=== PATIENT | female | born 1950 | race Caucasian/White ===

== ENCOUNTER 2021-05-12 05:21 | Observation (INO) | payer MEDICARE ==
[~2021-05-12] VITALS: Ht 165.1 cm; Wt 104.3 kg
[2021-05-12] MEDS ORDERED: DEXTROSE 50% SYRINGE 50 ML IV ONE (05:50)
[2021-05-12 05:59] LABS: BASOPHILS % 0.7 % (0.0-1.0); EOSINOPHILS # (AUTO) 0.3 (0.0-0.4); EOSINOPHILS % 5.1 % (0.0-6.0); HEMATOCRIT 38.5 % (34.2-44.1); HEMOGLOBIN 12.8 g/dL (12.0-16.0); LYMPHOCYTES # (AUTO) 1.9 (1.0-3.2); LYMPHOCYTES % 32.7 % (18.0-39.1); MEAN CORPUSCULAR HEMOGLOBIN 31.1 pg (28-32); MEAN CORPUSCULAR HGB CONC 33.2 g/dL (31-35); MEAN CORPUSCULAR VOLUME 93.4 fL (81-99); MONOCYTES # (AUTO) 0.8 (0.2-0.8); MONOCYTES % 13.3 % (4.4-11.3); NEUTROPHILS # (AUTO) 2.7 (2.1-6.9); NEUTROPHILS % 47.7 % (38.7-80.0); PLATELET COUNT 246 x10e3/uL (140-360); RED BLOOD COUNT 4.12 x10e6/uL (3.6-5.1); RED CELL DISTRIBUTION WIDTH 12.8 % (11.7-14.4)
[2021-05-12 06:18] LABS: ALBUMIN 3.5 g/dL (3.5-5.0); ALBUMIN/GLOBULIN RATIO 1.1 (0.8-2.0); ANION GAP 14.2 mmol/L (8-16); CALCIUM 8.5 mg/dL (8.4-10.2); CREATININE, SERUM 1.12 mg/dL (0.57-1.11); POTASSIUM 4.2 mmol/L (3.5-5.1)
[2021-05-12] MEDS ORDERED: ONDANSETRON HCL INJ 2MG/ML 2ML 2 MG/ML VIAL IV PRN (09:45)
[2021-05-12] MEDS ORDERED: ACETAMINOPHEN 325 MG TAB PO PRN (09:45)
[2021-05-12] MEDS ORDERED: DOCUSATE SODIUM 100 MG CAP PO PRN (09:45)
[2021-05-12] MEDS ORDERED: SODIUM CHLORIDE 0.45% 1,000 ML IV ONE (10:30)
[2021-05-12 10:35] LABS: CHOL/HDL RATIO 4.1 (3.0-3.6)
[2021-05-12 12:21] VITALS: BP 119/53
[2021-05-12] MEDS ORDERED: DEXTROSE 5%/0.45% SOD CHL 1,000 ML IV SCH (14:15)
[2021-05-12] MEDS ORDERED: OXYCODONE/ACETAMINOPHEN 5-325 1 EACH TABLET PO NR (14:30)
[2021-05-12 15:42] VITALS: BP 110/79
[2021-05-12 16:51] LABS: ANION GAP 12.9 mmol/L (8-16); CALCIUM 8.5 mg/dL (8.4-10.2); CREATININE, SERUM 0.97 mg/dL (0.57-1.11); POTASSIUM 4.9 mmol/L (3.5-5.1)
[2021-05-12 17:50] VITALS: BP 110/79
[2021-05-12 17:54] VITALS: BP 110/79
[2021-05-12 20:00] VITALS: BP 117/60
[2021-05-13] VITALS (7 sets, daily range): BP systolic 119–172; BP diastolic 49–84
[2021-05-13] MEDS: OXYCODONE/ACETAMINOPHEN 5-325 1 EACH TABLET PO PRN ×3 (01:50→16:00)
[2021-05-13 06:28] LABS: BASOPHILS % 1.1 % (0.0-1.0); EOSINOPHILS # (AUTO) 0.2 (0.0-0.4); EOSINOPHILS % 6.2 % (0.0-6.0); HEMATOCRIT 38.1 % (34.2-44.1); HEMOGLOBIN 12.6 g/dL (12.0-16.0); LYMPHOCYTES # (AUTO) 1.1 (1.0-3.2); LYMPHOCYTES % 32.3 % (18.0-39.1); MEAN CORPUSCULAR HGB CONC 33.1 g/dL (31-35); MEAN CORPUSCULAR VOLUME 93.6 fL (81-99); MONOCYTES # (AUTO) 0.5 (0.2-0.8); MONOCYTES % 14.7 % (4.4-11.3); NEUTROPHILS # (AUTO) 1.6 (2.1-6.9); NEUTROPHILS % 44.9 % (38.7-80.0); PLATELET COUNT 182 x10e3/uL (140-360); RED BLOOD COUNT 4.07 x10e6/uL (3.6-5.1); RED CELL DISTRIBUTION WIDTH 12.6 % (11.7-14.4)
[2021-05-13 07:01] LABS: ANION GAP 12.2 mmol/L (8-16); CALCIUM 8.7 mg/dL (8.4-10.2); CREATININE, SERUM 0.78 mg/dL (0.57-1.11); POTASSIUM 4.2 mmol/L (3.5-5.1)
[2021-05-13] MEDS ORDERED: DEXTROSE 5%/0.45% SOD CHL 1,000 ML IV ONE (07:45)
[2021-05-14] VITALS: BP 140/64
[2021-05-14] MEDS: OXYCODONE/ACETAMINOPHEN 5-325 1 EACH TABLET PO PRN ×2 (00:56→07:56)
[2021-05-14 04:00] VITALS: BP 140/66
[2021-05-14 07:55] VITALS: BP 165/80
[2021-05-14 08:00] VITALS: BP 165/80
[2021-05-14] MEDS ORDERED: METOPROLOL TART25 MG PO (09:48)
== END 2021-05-14 10:18 | disposition home or self-care (01) ==
LOC: ER 05:26 → ERHOLD 07:26 → MED/SURG2 08:27
PROVIDERS: ADMIT Internal Medicine; ATTEND Internal Medicine
DX: E11.649 Type 2 diabetes mellitus with hypoglycemia without coma (principal); Z88.6 Allergy status to analgesic agent; E66.9 Obesity, unspecified; Z68.38 Body mass index [BMI] 38.0-38.9, adult; M54.9 Dorsalgia, unspecified; Z82.49 Family history of ischemic heart disease and other diseases of the circulatory system; N17.9 Acute kidney failure, unspecified; Z20.822 Contact with and (suspected) exposure to COVID-19
CPT/HCPCS: 36415 ×3; 70450; 71045; 80048 ×2; 80053; 80061; 82948 ×3; 83036; 84484; 85025 ×2; 93005; 94799; 96360; 99284; G0378 ×3; J2405; J7799; U0002

== ENCOUNTER 2021-06-16 11:23 | Emergency (ER) | payer MEDICARE, OTHER ==
[~2021-06-16] VITALS: Ht 165.1 cm; Wt 102.1 kg
[~2021-06-16 11:23] MED LIST: METOPROLOL TART25 MG PO
[2021-06-16] MEDS ORDERED: TESSALON PERLE100 MG PO (12:41)
[2021-06-16] MEDS ORDERED: PROAIR HFA INH8.5 GM PEG (12:41)
== END 2021-06-16 12:50 | disposition home or self-care (01) ==
LOC: ER 12:40
DX: U07.1 COVID-19 (principal); I10 Essential (primary) hypertension; E11.9 Type 2 diabetes mellitus without complications; G89.29 Other chronic pain; Z88.6 Allergy status to analgesic agent; Z88.1 Allergy status to other antibiotic agents; Z88.8 Allergy status to other drugs, medicaments and biological substances
CPT/HCPCS: 99283; U0002

== ENCOUNTER 2021-08-20 05:38 | Emergency (ER) | payer MEDICARE, OTHER ==
[~2021-08-20] VITALS: Ht 165.1 cm; Wt 103.9 kg
[~2021-08-20 05:38] MED LIST changes: +PROAIR HFA INH8.5 GM PEG; +TESSALON PERLE100 MG PO
[2021-08-20] MEDS ORDERED: SODIUM CHLORIDE 0.9% 1000ML 1,000 ML IV STA (05:50)
[2021-08-20] MEDS ORDERED: ONDANSETRON HCL INJ 2MG/ML 2ML 2 MG/ML VIAL IV PRN (06:00)
[2021-08-20 06:02] LABS: BASOPHILS # (AUTO) 0.1 (0.0-0.1); EOSINOPHILS # (AUTO) 0.1 (0.0-0.4); EOSINOPHILS % 1.7 % (0.0-6.0); HEMATOCRIT 46.9 % (34.2-44.1); HEMOGLOBIN 16.1 g/dL (12.0-16.0); LYMPHOCYTES # (AUTO) 2.1 (1.0-3.2); LYMPHOCYTES % 35.8 % (18.0-39.1); MEAN CORPUSCULAR HEMOGLOBIN 30.6 pg (28-32); MEAN CORPUSCULAR HGB CONC 34.3 g/dL (31-35); MEAN CORPUSCULAR VOLUME 89.2 fL (81-99); MONOCYTES # (AUTO) 0.7 (0.2-0.8); MONOCYTES % 12.7 % (4.4-11.3); NEUTROPHILS # (AUTO) 2.8 (2.1-6.9); NEUTROPHILS % 48.3 % (38.7-80.0); PLATELET COUNT 293 x10e3/uL (140-360); RED BLOOD COUNT 5.26 x10e6/uL (3.6-5.1)
[2021-08-20 06:36] LABS: ANION GAP 14.9 mmol/L (8-16); CALCIUM 10.1 mg/dL (8.4-10.2); CREATININE, SERUM 1.14 mg/dL (0.57-1.11); POTASSIUM 3.9 mmol/L (3.5-5.1)
[2021-08-20] MEDS ORDERED: SODIUM CHLORIDE 0.9% 50ML 50 ML ONE (07:16)
[2021-08-20] MEDS ORDERED: IOPAMIDOL 370 MG/ML 200 ML INFUS..BTL INJ ONE (07:16)
[2021-08-20 08:30] LABS: CLARITY,URINE CLEAR (CLEAR); COLOR,URINE YELLOW (YELLOW); KETONES,URINE 1+ (NEGATIVE); LEUKOCYTE ESTERASE ,URINE NEGATIVE (NEGATIVE); NITRITE,URINE NEGATIVE (NEGATIVE); PROTEIN,URINE DIPSTICK NEGATIVE (NEGATIVE); URINE UROBILINOGEN 1 mg/dL (0.2 - 1)
[2021-08-20 08:36] LABS: EPITHELIAL CELLS,URINE RARE /LPF; RBC,URINE 0-5 /HPF (0-5); WBC,URINE (MAN) 0-5 /HPF (0-5)
[2021-08-20] MEDS ORDERED: PROMETHAZINE12.5 M1 PO (08:42)
== END 2021-08-20 09:28 | disposition home or self-care (01) ==
LOC: ER 05:45
DX: R10.9 Unspecified abdominal pain (principal); R11.2 Nausea with vomiting, unspecified; E11.65 Type 2 diabetes mellitus with hyperglycemia; I10 Essential (primary) hypertension; Z85.3 Personal history of malignant neoplasm of breast
CPT/HCPCS: 36415; 74177; 80053; 81001; 83690; 84484; 85025; 93005; 99284; J2405; J7030; Q9967

== ENCOUNTER 2021-10-25 04:31 | Observation (INO) | payer MEDICARE ==
[~2021-10-25] VITALS: Ht 165.1 cm; Wt 104.6 kg
[~2021-10-25 04:31] MED LIST changes: +PROMETHAZINE12.5 M1 PO
[2021-10-25] MEDS ORDERED: SODIUM CHLORIDE 0.9% 1000ML 1,000 ML IV STA ×2 (04:45→05:26)
[2021-10-25] MEDS ORDERED: ONDANSETRON HCL INJ 2MG/ML 2ML 2 MG/ML VIAL IV STA ×2 (04:45→04:46)
[2021-10-25] MEDS ORDERED: SODIUM CHLORIDE 0.9% 1000ML 1,000 ML ONE (04:58)
[2021-10-25 04:59] LABS: BASOPHILS # (AUTO) 0.1 (0.0-0.1); EOSINOPHILS % 0.6 % (0.0-6.0); HEMATOCRIT 46.8 % (34.2-44.1); HEMOGLOBIN 16.2 g/dL (12.0-16.0); LYMPHOCYTES # (AUTO) 1.7 (1.0-3.2); LYMPHOCYTES % 24.1 % (18.0-39.1); MEAN CORPUSCULAR HEMOGLOBIN 31.3 pg (28-32); MEAN CORPUSCULAR HGB CONC 34.6 g/dL (31-35); MEAN CORPUSCULAR VOLUME 90.3 fL (81-99); MONOCYTES # (AUTO) 0.7 (0.2-0.8); MONOCYTES % 9.1 % (4.4-11.3); NEUTROPHILS # (AUTO) 4.6 (2.1-6.9); NEUTROPHILS % 64.6 % (38.7-80.0); PLATELET COUNT 335 x10e3/uL (140-360); RED BLOOD COUNT 5.18 x10e6/uL (3.6-5.1); RED CELL DISTRIBUTION WIDTH 12.9 % (11.7-14.4)
[2021-10-25] MEDS ORDERED: SODIUM CHLORIDE 0.9% 1000ML 1,000 ML IV ONE (05:00)
[2021-10-25 05:19] LABS: ALBUMIN 3.9 g/dL (3.5-5.0); ALBUMIN/GLOBULIN RATIO 0.9 (0.8-2.0); ANION GAP 16.8 mmol/L (8-16); CALCIUM 9.8 mg/dL (8.4-10.2); CREATININE, SERUM 1.6 mg/dL (0.57-1.11); POTASSIUM 3.8 mmol/L (3.5-5.1)
[2021-10-25] MEDS ORDERED: INSULIN REGULAR, HUMAN 100 UNIT/1 ML IV ONE (05:30)
[2021-10-25 06:07] LABS: AMPHETAMINES SCREEN,URINE NEGATIVE (NEGATIVE); BENZODIAZEPINES SCREEN,URINE NEGATIVE (NEGATIVE); PHENCYCLIDINE SCREEN,URINE NEGATIVE (NEGATIVE)
[2021-10-25 06:08] LABS: CLARITY,URINE CLEAR (CLEAR); COLOR,URINE YELLOW (YELLOW); KETONES,URINE NEGATIVE (NEGATIVE); LEUKOCYTE ESTERASE ,URINE NEGATIVE (NEGATIVE); NITRITE,URINE NEGATIVE (NEGATIVE); PROTEIN,URINE DIPSTICK NEGATIVE (NEGATIVE); URINE UROBILINOGEN 0.2 mg/dL (0.2 - 1)
[2021-10-25 06:10] LABS: BACTERIA,URINE FEW /HPF; EPITHELIAL CELLS,URINE FEW /LPF; RBC,URINE 0-5 /HPF (0-5); WBC,URINE (MAN) 0-5 /HPF (0-5)
[2021-10-25] MEDS ORDERED: DICYCLOMINE HCL 20 MG/2 ML VIAL IM ONE (06:30)
[2021-10-25] MEDS: SODIUM CHLORIDE 0.9% 1000ML 1,000 ML IV SCH ×3 (07:20→22:30)
[2021-10-25] MEDS: ONDANSETRON HCL INJ 2MG/ML 2ML 2 MG/ML VIAL IV PRN ×3 (08:15→19:43)
[2021-10-25 10:00] VITALS: BP 152/62
[2021-10-25] MEDS ORDERED: [UNRECOGNIZED DRUG - OTHER] (10:34)
[2021-10-25] MEDS ORDERED: LOSARTAN POTAS100 MG PO (10:34)
[2021-10-25] MEDS ORDERED: AMLODIPINE BESY10 MG PO (10:34)
[2021-10-25] MEDS ORDERED: JARDIANCE25 MG (10:34)
[2021-10-25] MEDS ORDERED: JANUVIA100 MG PO (10:34)
[2021-10-25] MEDS ORDERED: DEXTROSE 50% SYRINGE 50 ML IV PRN (11:00)
[2021-10-25] MEDS: INSULIN REGULAR, HUMAN 100 UNIT/1 ML SQ SCH ×3 (11:30→21:00)
[2021-10-25 11:32] LABS: CHOL/HDL RATIO 5.8 (3.0-3.6)
[2021-10-25 11:50] VITALS: BP 170/66
[2021-10-25] MEDS: DIPHENHYDRAMINE HCL INJ 50 MG/ML VIAL IV SCH ×2 (12:00→17:35)
[2021-10-25] MEDS: METOCLOPRAMIDE HCL 10 MG/2ML VIAL IV SCH ×2 (12:35→17:36)
[2021-10-25 14:02] VITALS: BP 170/66
[2021-10-25] MEDS: METRONIDAZOLE 500MG/NS 100ML 100 ML IV SCH ×2 (15:12→22:00)
[2021-10-25 16:45] VITALS: BP 148/60
[2021-10-25] MEDS: METOPROLOL TARTRATE 25 MG TAB PO SCH (17:35)
[2021-10-25 20:00] VITALS: BP 121/52
[2021-10-25 20:01] VITALS: BP 148/60
[2021-10-26] VITALS (8 sets, daily range): BP systolic 119–147; BP diastolic 50–75
[2021-10-26] MEDS: DIPHENHYDRAMINE HCL INJ 50 MG/ML VIAL IV SCH ×4 (00:13→16:28)
[2021-10-26] MEDS: METOCLOPRAMIDE HCL 10 MG/2ML VIAL IV SCH ×4 (00:14→16:28)
[2021-10-26] MEDS: ONDANSETRON HCL INJ 2MG/ML 2ML 2 MG/ML VIAL IV PRN ×5 (00:25→20:30)
[2021-10-26] MEDS: METRONIDAZOLE 500MG/NS 100ML 100 ML IV SCH ×3 (05:27→22:43)
[2021-10-26 06:11] LABS: BASOPHILS # (AUTO) 0.1 (0.0-0.1); BASOPHILS % 1.3 % (0.0-1.0); EOSINOPHILS # (AUTO) 0.2 (0.0-0.4); EOSINOPHILS % 4.7 % (0.0-6.0); HEMATOCRIT 41.2 % (34.2-44.1); HEMOGLOBIN 13.8 g/dL (12.0-16.0); LYMPHOCYTES # (AUTO) 1.4 (1.0-3.2); LYMPHOCYTES % 29.1 % (18.0-39.1); MEAN CORPUSCULAR HGB CONC 33.5 g/dL (31-35); MEAN CORPUSCULAR VOLUME 92.6 fL (81-99); MONOCYTES # (AUTO) 0.5 (0.2-0.8); MONOCYTES % 11.4 % (4.4-11.3); NEUTROPHILS # (AUTO) 2.5 (2.1-6.9); NEUTROPHILS % 52.9 % (38.7-80.0); PLATELET COUNT 254 x10e3/uL (140-360); RED BLOOD COUNT 4.45 x10e6/uL (3.6-5.1); RED CELL DISTRIBUTION WIDTH 12.9 % (11.7-14.4)
[2021-10-26] MEDS ORDERED: BENZONATATE 100 MG CAP PO PRN (06:15)
[2021-10-26] MEDS ORDERED: ALBUTEROL/IPRATROPIUM 3 ML NEB NEB PRN (06:15)
[2021-10-26 06:28] LABS: ALBUMIN 3.1 g/dL (3.5-5.0); ANION GAP 10.6 mmol/L (8-16); CALCIUM 8.3 mg/dL (8.4-10.2); CREATININE, SERUM 0.82 mg/dL (0.57-1.11); POTASSIUM 3.6 mmol/L (3.5-5.1)
[2021-10-26] MEDS: SODIUM CHLORIDE 0.9% 1000ML 1,000 ML IV SCH ×2 (06:47→13:38)
[2021-10-26] MEDS: INSULIN REGULAR, HUMAN 100 UNIT/1 ML SQ SCH ×4 (07:30→21:00)
[2021-10-26] MEDS: AMLODIPINE BESYLATE 10 MG TAB PO SCH (08:58)
[2021-10-26] MEDS: SITAGLIPTIN 100 MG TAB PO SCH (08:58)
[2021-10-26] MEDS: METOPROLOL TARTRATE 25 MG TAB PO SCH ×2 (08:59→16:29)
[2021-10-27] VITALS: BP 152/72
[2021-10-27] MEDS: SODIUM CHLORIDE 0.9% 1000ML 1,000 ML IV SCH ×2 (01:42→06:30)
[2021-10-27 04:00] VITALS: BP 165/67
[2021-10-27] MEDS: METRONIDAZOLE 500MG/NS 100ML 100 ML IV SCH (06:00)
[2021-10-27] MEDS: DIPHENHYDRAMINE HCL INJ 50 MG/ML VIAL IV SCH ×2 (06:00)
[2021-10-27] MEDS: METOCLOPRAMIDE HCL 10 MG/2ML VIAL IV SCH ×2 (06:00)
[2021-10-27] MEDS: INSULIN REGULAR, HUMAN 100 UNIT/1 ML SQ SCH ×2 (07:30→11:30)
[2021-10-27] MEDS ORDERED: ONDANSETRON HCL 4 MG ORAL DISINTEGRATING TAB PO PRN ×2 (08:15→08:45)
[2021-10-27 08:18] VITALS: BP 157/75
[2021-10-27] MEDS: METOPROLOL TARTRATE 25 MG TAB PO SCH (08:32)
[2021-10-27] MEDS: AMLODIPINE BESYLATE 10 MG TAB PO SCH (08:33)
[2021-10-27 08:37] VITALS: BP 157/75
[2021-10-27 08:38] LABS: ANION GAP 14.6 mmol/L (8-16); CALCIUM 8.3 mg/dL (8.4-10.2); CREATININE, SERUM 0.82 mg/dL (0.57-1.11); POTASSIUM 3.6 mmol/L (3.5-5.1)
[2021-10-27] MEDS ORDERED: PROMETHAZINE HCL 25 MG TAB PO PRN (08:45)
[2021-10-27] MEDS ORDERED: METRONIDAZOLE500 MG PO (08:49)
[2021-10-27] MEDS ORDERED: PHENERGAN SUPP25 MG RC (08:49)
[2021-10-27] MEDS ORDERED: CEPHALEXIN500 MG PO (08:49)
[2021-10-27] MEDS ORDERED: ONDANSETRON ODT4 MG PO (08:49)
[2021-10-27] MEDS ORDERED: CEPHALEXIN 500 MG CAP PO SCH (09:30)
[2021-10-27] MEDS: SITAGLIPTIN 100 MG TAB PO SCH (09:58)
[2021-10-27 11:53] VITALS: BP 158/73
[2021-10-27] MEDS ORDERED: METRONIDAZOLE 500 MG TAB PO SCH (14:00)
== END 2021-10-27 12:42 | disposition home or self-care (01) ==
LOC: ER 04:32 → ERHOLD 06:30 → INTOOBSV 06:30 → MED/SURG2 09:54
PROVIDERS: ADMIT Internal Medicine; ATTEND Internal Medicine
DX: A04.9 Bacterial intestinal infection, unspecified (principal); E11.65 Type 2 diabetes mellitus with hyperglycemia; Z79.899 Other long term (current) drug therapy; N28.9 Disorder of kidney and ureter, unspecified; E66.01 Morbid (severe) obesity due to excess calories; Z68.38 Body mass index [BMI] 38.0-38.9, adult; N17.0 Acute kidney failure with tubular necrosis; K52.9 Noninfective gastroenteritis and colitis, unspecified; Z80.3 Family history of malignant neoplasm of breast; G89.4 Chronic pain syndrome; Z20.822 Contact with and (suspected) exposure to COVID-19; Z79.4 Long term (current) use of insulin
CPT/HCPCS: 36415 ×3; 74176; 80048; 80053 ×2; 80061; 80307; 81001; 82948 ×2; 83036; 83690; 84484; 85025 ×2; 87086; 93005; 94640; 94799 ×2; 99284; G0378 ×3; J0500; J0696 ×3; J1200 ×3; J1817; J2405 ×2; J2765 ×3; J7030 ×2; Q0162; U0002

== ENCOUNTER 2022-02-10 20:02 | Emergency (ER) | payer MEDICARE ==
[~2022-02-10] VITALS: Ht 165.1 cm; Wt 104.3 kg
[~2022-02-10 20:02] MED LIST changes: +AMLODIPINE BESY10 MG PO; +CEPHALEXIN500 MG PO; +JANUVIA100 MG PO; +JARDIANCE25 MG; +LOSARTAN POTAS100 MG PO; +METRONIDAZOLE500 MG PO; +ONDANSETRON ODT4 MG PO; +PHENERGAN SUPP25 MG RC; +[UNRECOGNIZED DRUG - OTHER]
[2022-02-10] MEDS ORDERED: SODIUM CHLORIDE 0.9% 1000ML 1,000 ML IV STA (20:30)
[2022-02-10] MEDS ORDERED: ONDANSETRON HCL INJ 2MG/ML 2ML 2 MG/ML VIAL IV STA (20:30)
[2022-02-10 20:54] LABS: BASOPHILS % 0.7 % (0.0-1.0); EOSINOPHILS # (AUTO) 0.1 (0.0-0.4); EOSINOPHILS % 1.5 % (0.0-6.0); HEMATOCRIT 46.3 % (34.2-44.1); HEMOGLOBIN 15.5 g/dL (12.0-16.0); LYMPHOCYTES # (AUTO) 1.2 (1.0-3.2); LYMPHOCYTES % 22.4 % (18.0-39.1); MEAN CORPUSCULAR HEMOGLOBIN 31.2 pg (28-32); MEAN CORPUSCULAR HGB CONC 33.5 g/dL (31-35); MEAN CORPUSCULAR VOLUME 93.2 fL (81-99); MONOCYTES # (AUTO) 0.6 (0.2-0.8); MONOCYTES % 10.4 % (4.4-11.3); NEUTROPHILS # (AUTO) 3.6 (2.1-6.9); NEUTROPHILS % 64.6 % (38.7-80.0); PLATELET COUNT 241 x10e3/uL (140-360); RED BLOOD COUNT 4.97 x10e6/uL (3.6-5.1); RED CELL DISTRIBUTION WIDTH 13.3 % (11.7-14.4)
[2022-02-10 21:21] LABS: ALBUMIN/GLOBULIN RATIO 0.9 (0.8-2.0); ANION GAP 18.9 mmol/L (8-16); CALCIUM 9.5 mg/dL (8.4-10.2); CREATININE, SERUM 1.02 mg/dL (0.57-1.11); POTASSIUM 4.9 mmol/L (3.5-5.1)
[2022-02-10] MEDS ORDERED: IOPAMIDOL 370 MG/ML 100 ML INFUS..BTL INJ ONE (21:49)
[2022-02-10 22:40] LABS: CLARITY,URINE CLEAR (CLEAR); COLOR,URINE YELLOW (YELLOW); KETONES,URINE 1+ (NEGATIVE); LEUKOCYTE ESTERASE ,URINE NEGATIVE (NEGATIVE); NITRITE,URINE NEGATIVE (NEGATIVE); PROTEIN,URINE DIPSTICK NEGATIVE (NEGATIVE); URINE UROBILINOGEN 0.2 mg/dL (0.2 - 1)
[2022-02-10 22:46] LABS: BACTERIA,URINE FEW /HPF; EPITHELIAL CELLS,URINE MODERATE /LPF; RBC,URINE 0-5 /HPF (0-5); WBC,URINE (MAN) 0-5 /HPF (0-5)
[2022-02-10] MEDS ORDERED: LOMOTIL TABLET1 EACH PO (23:11)
[2022-02-10] MEDS ORDERED: ONDANSETRON ODT4 MG PO (23:12)
== END 2022-02-10 23:19 | disposition home or self-care (01) ==
LOC: ER 20:10
DX: R19.7 Diarrhea, unspecified (principal); R11.2 Nausea with vomiting, unspecified; E11.65 Type 2 diabetes mellitus with hyperglycemia; I10 Essential (primary) hypertension; Z85.3 Personal history of malignant neoplasm of breast
CPT/HCPCS: 36415; 74177; 80053; 81001; 83690; 85025; 93005; 99284; J2405; J7030; Q9967

== ENCOUNTER 2024-09-01 14:17 | Observation (INO) | payer MEDICARE ==
[~2024-09-01] VITALS: Ht 165.1 cm; Wt 100.2 kg
[~2024-09-01 14:17] MED LIST changes: +ATORVASTATIN CA20 MG PO; +ATORVASTATIN CA40 MG PO; +Benzonatate PO; +CYCLOBENZAPRINE5 MG PO; +Diphenhydramine Hcl PO; +FAMOTIDINE20 MG PO; +HYDRALAZINE HCL10 MG PO; +LOMOTIL TABLET1 EACH PO; +LYRICA150 MG PO; +MELOXICAM7.5 MG PO; +PERCOCET 7.5-31 EACH PO; +ROBITUSSIN COU118 M4 PO; +TRESIBA FL200 UNIT/1
[2024-09-01 16:20] LABS: BASOPHILS % 0.6 % (0.0-1.0); EOSINOPHILS # (AUTO) 0.1 (0.0-0.4); EOSINOPHILS % 2.1 % (0.0-6.0); HEMATOCRIT 45.2 % (34.2-44.1); HEMOGLOBIN 15.8 g/dL (12.0-16.0); LYMPHOCYTES # (AUTO) 0.9 (1.0-3.2); LYMPHOCYTES % 18.4 % (18.0-39.1); MEAN CORPUSCULAR HEMOGLOBIN 30.7 pg (28-32); MEAN CORPUSCULAR VOLUME 87.9 fL (81-99); MONOCYTES # (AUTO) 0.4 (0.2-0.8); MONOCYTES % 7.5 % (4.4-11.3); NEUTROPHILS # (AUTO) 3.3 (2.1-6.9); NEUTROPHILS % 70.5 % (38.7-80.0); PLATELET COUNT 311 x10e3/uL (140-360); RED BLOOD COUNT 5.14 x10e6/uL (3.6-5.1); RED CELL DISTRIBUTION WIDTH 13.6 % (11.7-14.4); WHITE BLOOD COUNT 4.68 x10e3/uL (4.8-10.8)
[2024-09-01] MEDS ORDERED: BELLADONNA ALK/PHENOBARBITAL 5 ML UDC PO STA (16:26)
[2024-09-01] MEDS ORDERED: KETOROLAC TROMETHAMINE 30 MG/ML VIAL IV STA (16:26)
[2024-09-01] MEDS ORDERED: LIDOCAINE VISC 2% SOLN 15 ML UDC PO ONE (16:30)
[2024-09-01] MEDS ORDERED: MAGNESIUM/ALUMINUM/SIMETHICONE 30 ML UDC PO ONE (16:30)
[2024-09-01 16:46] LABS: ALBUMIN 4.1 g/dL (3.5-5.0); ALBUMIN/GLOBULIN RATIO 0.9 (0.8-2.0); ANION GAP 22.2 mmol/L (8-16); BILIRUBIN,TOTAL 0.7 mg/dL (0.2-1.2); CREATININE, SERUM 0.91 mg/dL (0.57-1.11); POTASSIUM 4.2 mmol/L (3.5-5.1); TOTAL PROTEIN 8.8 g/dL (6.5-8.1)
[2024-09-01] MEDS: ONDANSETRON HCL INJ 2MG/ML 2ML 2 MG/ML VIAL IV STA (16:50)
[2024-09-01] MEDS: DONNATAL/LIDOCAINE/MAALOX 30 ML SUSP PO ONE (16:50)
[2024-09-01 16:52] LABS: TROPONIN I 0.02 ng/mL (0-0.300)
[2024-09-01] MEDS: Morphine 4mg INJECTION 4 MG/ML INJ IV PRN (18:01)
[2024-09-01 18:53] VITALS: PULSE 90; RESP 15; TEMP 98.5
[2024-09-01 18:55] VITALS: PULSE 80; RESP 18; O2SAT 96
[2024-09-01 18:57] LABS: TROPONIN I 0.018 ng/mL (0-0.300)
[2024-09-01 20:00] VITALS: BP_SYST 161; BP_SYST 178; BP_DIAS 83; BP_DIAS 94; PULSE 80; PULSE 98; RESP 17; RESP 18; TEMP 98.2; O2SAT 96; O2SAT 99
[2024-09-01] MEDS ORDERED: ATORVASTATIN CA20 MG PO (21:59)
[2024-09-01] MEDS ORDERED: OXYCODONE-ACET1 EAC3 PO (21:59)
[2024-09-01] MEDS: ONDANSETRON HCL INJ 2MG/ML 2ML 2 MG/ML VIAL IV PRN (22:16)
[2024-09-02] VITALS: BP 153/70; PULSE 78; RESP 15; TEMP 98.2; O2SAT 100
[2024-09-02 06:16] VITALS: PULSE 74; RESP 20; O2SAT 95
[2024-09-02 07:53] LABS: EOSINOPHILS # (AUTO) 0.2 (0.0-0.4); EOSINOPHILS % 5.3 % (0.0-6.0); HEMATOCRIT 39.7 % (34.2-44.1); HEMOGLOBIN 13.7 g/dL (12.0-16.0); LYMPHOCYTES # (AUTO) 1.6 (1.0-3.2); LYMPHOCYTES % 39.3 % (18.0-39.1); MEAN CORPUSCULAR HEMOGLOBIN 30.6 pg (28-32); MEAN CORPUSCULAR HGB CONC 34.5 g/dL (31-35); MEAN CORPUSCULAR VOLUME 88.8 fL (81-99); MONOCYTES # (AUTO) 0.6 (0.2-0.8); MONOCYTES % 14.7 % (4.4-11.3); NEUTROPHILS # (AUTO) 1.6 (2.1-6.9); PLATELET COUNT 270 x10e3/uL (140-360); RED BLOOD COUNT 4.47 x10e6/uL (3.6-5.1); WHITE BLOOD COUNT 4.15 x10e3/uL (4.8-10.8)
[2024-09-02 08:00] VITALS: BP 133/71; PULSE 75; RESP 17; TEMP 97.8; O2SAT 95
[2024-09-02 08:20] LABS: ANION GAP 13.8 mmol/L (8-16); CALCIUM 8.9 mg/dL (8.4-10.2); CREATININE, SERUM 0.86 mg/dL (0.57-1.11); POTASSIUM 3.8 mmol/L (3.5-5.1)
[2024-09-02 08:28] LABS: TROPONIN I 0.016 ng/mL (0-0.300)
[2024-09-02 08:56] VITALS: BP 133/71; PULSE 75; RESP 17; TEMP 97.8; O2SAT 95
[2024-09-02] MEDS ORDERED: MELATONIN 3 MG TAB PO PRN (12:15)
[2024-09-02] MEDS ORDERED: ACETAMINOPHEN 325 MG TAB PO PRN (12:15)
[2024-09-02] MEDS ORDERED: METOPROLOL TARTRATE INJ 1 MG/ML VIAL IV PRN (12:15)
[2024-09-02] MEDS ORDERED: ALBUTEROL/IPRATROPIUM 3 ML NEB NEB PRN (12:15)
[2024-09-02] MEDS ORDERED: DOCUSATE SODIUM 100 MG CAP PO PRN (12:15)
[2024-09-02] MEDS ORDERED: NON-FORMULARY MEDICATION (Oxycodone Hcl/Acetaminophen (Oxycodone-Acetaminophen 10-325) 1 T PO PRN (12:15)
[2024-09-02] MEDS ORDERED: DEXTROSE 50% SYRINGE 50 ML IV PRN (12:15)
[2024-09-02 12:35] VITALS: BP 149/67; PULSE 74; RESP 17; TEMP 97.8; O2SAT 97
[2024-09-02 12:53] LABS: CHOL/HDL RATIO 4.6 (3.0-3.6)
[2024-09-02 16:27] VITALS: BP 137/75; PULSE 73; RESP 17; TEMP 98.1; O2SAT 95
[2024-09-02] MEDS ORDERED: MELOXICAM 7.5 MG TAB PO SCH (16:30)
[2024-09-02] MEDS: CYCLOBENZAPRINE HCL 10 MG TAB PO SCH (16:37)
[2024-09-02] MEDS: FAMOTIDINE 20 MG TAB PO SCH (16:37)
[2024-09-02] MEDS: PREGABALIN 75 MG CAP PO SCH (16:37)
[2024-09-02] MEDS: ENOXAPARIN SOD INJ 40 MG/0.4 ML SYR SC SCH (16:38)
[2024-09-02] MEDS: INSULIN REGULAR, HUMAN 100 UNIT/1 ML SQ SCH (16:41)
[2024-09-02] MEDS ORDERED: ATORVASTATIN 40 MG TAB PO SCH (21:00)
[2024-09-03] MEDS ORDERED: SITAGLIPTIN 100 MG TAB PO SCH (09:00)
[2024-09-03] MEDS ORDERED: AMLODIPINE BESYLATE 5 MG TAB PO SCH (09:00)
[2024-09-03] MEDS ORDERED: LOSARTAN POTASSIUM 100 MG TAB PO SCH (09:00)
== END 2024-09-02 20:54 | disposition home or self-care (01) ==
LOC: ER 15:12 → ERHOLD 17:23 → MED/SURG2 19:40
PROVIDERS: ADMIT Internal Medicine; ATTEND Internal Medicine
DX: R07.89 Other chest pain (principal); E11.9 Type 2 diabetes mellitus without complications; I10 Essential (primary) hypertension; E78.5 Hyperlipidemia, unspecified; Z79.4 Long term (current) use of insulin; Z85.3 Personal history of malignant neoplasm of breast; Z87.891 Personal history of nicotine dependence; Z90.13 Acquired absence of bilateral breasts and nipples
CPT/HCPCS: 36415 ×2; 71045; 80048; 80053; 80061; 82550 ×2; 83036; 83690; 84484 ×2; 85025 ×2; 93005; 94799 ×2; 99284; G0378 ×2; J1650; J2270 ×2; J2405 ×2

== ENCOUNTER 2025-02-14 17:42 | Inpatient (IN) | payer MEDICARE ==
[~2025-02-14] VITALS: Ht 167.6 cm; Wt 100.2 kg
[~2025-02-14 17:42] MED LIST changes: +OXYCODONE-ACET1 EAC3 PO
[2025-02-14 18:29] LABS: BASOPHILS % 0.7 % (0.0-1.0); EOSINOPHILS % 0.0 % (0.0-6.0); LYMPHOCYTES % 9.5 % (18.0-39.1); MONOCYTES % 8.2 % (4.4-11.3); NEUTROPHILS % 81.3 % (38.7-80.0); RED CELL DISTRIBUTION WIDTH 13.7 % (11.7-14.4)
[2025-02-14] MEDS: SODIUM CHLORIDE 0.9% 1000ML 1,000 ML IV STA (18:42)
[2025-02-14 18:57] LABS: EST GLOMERULAR FILTRATION RATE 41.0 ML/MIN (>=60)
[2025-02-14 19:52] LABS: CORONAVIRUS COVID-19 AG POSITIVE (NEGATIVE)
[2025-02-14 20:00] VITALS: PULSE 87; RESP 19; TEMP 98.9
[2025-02-14] MEDS: Morphine 2mg Syringe 2 MG/ML SYR IV PRN (20:18)
[2025-02-14 20:30] VITALS: PULSE 82; RESP 16; O2SAT 99
[2025-02-14] MEDS: SODIUM CHLORIDE 0.9% 1000ML 1,000 ML IV SCH (21:51)
[2025-02-14 22:54] VITALS: BP 137/67; PULSE 76; RESP 18; TEMP 99.4; O2SAT 96
[2025-02-15] VITALS (13 sets, daily range): BP systolic 137–175; BP diastolic 56–87; PULSE 73–86; RESP 16–20; TEMP 96.5–99.4; O2SAT 94–99
[2025-02-15] MEDS ORDERED: DOCUSATE SODIUM 100 MG CAP PO PRN (01:45)
[2025-02-15] MEDS ORDERED: BENZONATATE 100 MG CAP PO PRN (01:45)
[2025-02-15] MEDS ORDERED: MELATONIN 5 MG TABLET PO PRN (01:45)
[2025-02-15] MEDS ORDERED: DIPHENHYDRAMINE HCL 25 MG CAP PO PRN (01:45)
[2025-02-15] MEDS ORDERED: HYDROCODONE/APAP 5MG-325MG TAB PO PRN (01:45)
[2025-02-15] MEDS ORDERED: ACETAMINOPHEN 325 MG TAB PO PRN (01:45)
[2025-02-15] MEDS ORDERED: SIMETHICONE 80 MG CHEW PO PRN (01:45)
[2025-02-15] MEDS ORDERED: HYDRALAZINE HCL 20 MG/ML VIAL IV PRN (01:45)
[2025-02-15] MEDS ORDERED: POTASSIUM CHLORIDE 20 MEQ TAB CR PO PRN (01:45)
[2025-02-15] MEDS ORDERED: DEXTROSE 50% SYRINGE 50 ML IV PRN (01:45)
[2025-02-15 06:20] LABS: BASOPHILS % 0.7 % (0.0-1.0); EOSINOPHILS % 0.7 % (0.0-6.0); LYMPHOCYTES % 20.3 % (18.0-39.1); MONOCYTES % 19.6 % (4.4-11.3); NEUTROPHILS % 58.2 % (38.7-80.0); RED CELL DISTRIBUTION WIDTH 13.9 % (11.7-14.4)
[2025-02-15 06:54] LABS: EST GLOMERULAR FILTRATION RATE 64.0 ML/MIN (>=60)
[2025-02-15 07:16] LABS: CHOL/HDL RATIO 2.7 (3.0-3.6); LDL CHOLESTEROL 46.0 MG/DL (60-130); PHOSPHORUS 2.6 MG/DL (2.3-4.7)
[2025-02-15] MEDS ORDERED: NON-FORMULARY MEDICATION (Oxycodone Hcl/Acetaminophen (Oxycodone-Acetaminophen 10-325) 1 T PO PRN (08:45)
[2025-02-15] MEDS: PANTOPRAZOLE SOD 40 MG TABEC PO SCH (09:06)
[2025-02-15] MEDS: OXYCODONE/ACETAMINOPHEN 5-325 1 EACH TABLET PO PRN ×2 (09:54→21:28)
[2025-02-15] MEDS: CEFEPIME 1 GM in SODIUM CHLORIDE 0.9% 100 ML IV SCH (11:42)
[2025-02-15] MEDS: ALBUTEROL/IPRATROPIUM 3 ML NEB NEB PRN (11:52)
[2025-02-15] MEDS: DEXAMETHASONE 4 MG TAB PO SCH (12:57)
[2025-02-15] MEDS: REMDESIVIR 200MG 200 MG in SODIUM CHLORIDE 0.9% 100 ML IV ONE (12:58)
[2025-02-15 13:44] LABS: AMPHETAMINES SCREEN,URINE NEGATIVE (NEGATIVE); CANNABINOIDS SCREEN,URINE NEGATIVE (NEGATIVE); COCAINE SCREEN,URINE NEGATIVE (NEGATIVE); METHADONE SCREEN, URINE NEGATIVE (NEGATIVE); OPIATES SCREEN,URINE POSITIVE (NEGATIVE)
[2025-02-15] MEDS: ENOXAPARIN SOD INJ 40 MG/0.4 ML SYR SC SCH (17:05)
[2025-02-15] MEDS: ATORVASTATIN 40 MG TAB PO SCH (20:17)
[2025-02-15] MEDS: OXYCODONE HCL IR 5 MG TAB PO PRN (21:28)
[2025-02-15] MEDS: PREGABALIN 75 MG CAP PO SCH (22:24)
[2025-02-15] MEDS ORDERED: OXYCODONE/ACETAMINOPHEN 5-325 1 EACH TABLET PO PRN (23:15)
[2025-02-15] MEDS ORDERED: OXYCODONE HCL IR 5 MG TAB PO PRN (23:15)
[2025-02-16] VITALS (12 sets, daily range): BP systolic 127–171; BP diastolic 60–76; PULSE 56–81; RESP 16–28; TEMP 96.2–98.1; O2SAT 96–100
[2025-02-16] MEDS ORDERED: DEXTROSE 50% SYRINGE 50 ML IV PRN (00:15)
[2025-02-16] MEDS: INSULIN GLARGINE 100 UNITS/ML VIAL SQ SCH (00:21)
[2025-02-16] MEDS: INSULIN LISPRO 100 UNIT/1 ML 3ML VIAL SQ SCH (00:21)
[2025-02-16] MEDS ORDERED: ASPIRIN 81 MG CHEW TAB PO SCH (09:00)
[2025-02-16] MEDS: ONDANSETRON HCL INJ 2MG/ML 2ML 2 MG/ML VIAL IV PRN (10:38)
[2025-02-16] MEDS: REMDESIVIR 100MG 100 MG in SODIUM CHLORIDE 0.9% 100 ML IV SCH (12:10)
[2025-02-16] MEDS: LOSARTAN POTASSIUM 100 MG TAB PO SCH (17:25)
[2025-02-16] MEDS: ATORVASTATIN 40 MG TAB PO SCH (20:13)
[2025-02-17] VITALS (11 sets, daily range): BP systolic 120–153; BP diastolic 68–91; PULSE 53–83; RESP 16–21; TEMP 97.5–98.2; O2SAT 95–99
[2025-02-17 06:25] LABS: BASOPHILS % 0.2 % (0.0-1.0); EOSINOPHILS % 0.0 % (0.0-6.0); LYMPHOCYTES % 14.3 % (18.0-39.1); MONOCYTES % 8.1 % (4.4-11.3); NEUTROPHILS % 77.1 % (38.7-80.0); RED CELL DISTRIBUTION WIDTH 13.8 % (11.7-14.4)
[2025-02-17 06:39] LABS: EST GLOMERULAR FILTRATION RATE 62.0 ML/MIN (>=60)
[2025-02-17] MEDS: AMLODIPINE BESYLATE 10 MG TAB PO SCH (08:48)
[2025-02-18] VITALS (8 sets, daily range): BP systolic 114–160; BP diastolic 62–77; PULSE 56–66; RESP 16–20; TEMP 97.4–98; O2SAT 95–99
[2025-02-18] MEDS: CLOPIDOGREL BISULFATE 75 MG TAB PO SCH (14:58)
[2025-02-18] MEDS ORDERED: IOPAMIDOL 370 MG/ML 100 ML INFUS..BTL INJ ONE (17:06)
[2025-02-18] MEDS ORDERED: SODIUM CHLORIDE 0.9% 100 ML ONE (17:07)
[2025-02-19] VITALS (9 sets, daily range): BP systolic 105–134; BP diastolic 69–85; PULSE 59–65; RESP 16–18; TEMP 97.4–98.6; O2SAT 95–100
[2025-02-20] VITALS (9 sets, daily range): BP systolic 96–168; BP diastolic 46–93; PULSE 59–70; RESP 16–18; TEMP 97.5–98; O2SAT 95–100
[2025-02-20 05:57] LABS: EST GLOMERULAR FILTRATION RATE 66.0 ML/MIN (>=60)
[2025-02-20] MEDS ORDERED: ONDANSETRON HCL 4 MG ORAL DISINTEGRATING TAB PO PRN (11:00)
[2025-02-21 08:52] VITALS: PULSE 68; RESP 16; O2SAT 98
[2025-02-21 09:27] LABS: EST GLOMERULAR FILTRATION RATE 76.0 ML/MIN (>=60)
[2025-02-21 09:31] VITALS: BP 120/66; PULSE 68; RESP 16; TEMP 97.7; O2SAT 98
[2025-02-21] MEDS ORDERED: ATORVASTATIN CA40 MG PO (10:20)
[2025-02-21] MEDS ORDERED: ONDANSETRON ODT4 MG PO (10:20)
[2025-02-21] MEDS ORDERED: PANTOPRAZOLE SO40 MG PO (10:20)
[2025-02-21] MEDS ORDERED: PLAVIX75 MG PO (10:20)
[2025-02-21] MEDS ORDERED: DEXAMETHASONE4 MG PO (10:20)
[2025-02-21 10:28] VITALS: BP 120/66; PULSE 65; RESP 19; TEMP 97.7; O2SAT 98
== END 2025-02-21 13:29 | disposition home or self-care (01) | DRG 64 ==
LOC: ER 17:49 → ERHOLD 20:16 → MED/SURG3 21:44
PROVIDERS: ADMIT Internal Medicine; ATTEND Internal Medicine
PROC: XW033E5 Introduction of Remdesivir Anti-infective into Peripheral Vein, Percutaneous Approach, New Technology Group 5 (ICD-10-PCS; 2025-02-16)
PROC: 05HY33Z Insertion of Infusion Device into Upper Vein, Percutaneous Approach (ICD-10-PCS; principal; 2025-02-20)
DX: I63.9 Cerebral infarction, unspecified (principal); J12.82 Pneumonia due to coronavirus disease 2019; U07.1 COVID-19; J69.0 Pneumonitis due to inhalation of food and vomit; R07.9 Chest pain, unspecified; R53.1 Weakness; M79.606 Pain in leg, unspecified; I10 Essential (primary) hypertension; G89.29 Other chronic pain; M54.50 Low back pain, unspecified; R09.02 Hypoxemia; E66.01 Morbid (severe) obesity due to excess calories; R53.81 Other malaise; M19.90 Unspecified osteoarthritis, unspecified site; E11.65 Type 2 diabetes mellitus with hyperglycemia; B96.89 Other specified bacterial agents as the cause of diseases classified elsewhere; Z79.4 Long term (current) use of insulin; Z79.891 Long term (current) use of opiate analgesic; Z85.3 Personal history of malignant neoplasm of breast; Z90.13 Acquired absence of bilateral breasts and nipples; Z88.6 Allergy status to analgesic agent; Z88.5 Allergy status to narcotic agent; Z88.8 Allergy status to other drugs, medicaments and biological substances; Z98.1 Arthrodesis status; Z68.35 Body mass index [BMI] 35.0-35.9, adult
CPT/HCPCS: 36415; 70450; 70496; 70498; 70551; 71045; 72125; 80048; 80053; 80061; 80307; 82550; 83036; 83690; 83735; 83880; 84100; 84443; 84484; 85014; 85018; 85025; 93005; 93306; 93880; 94799; 96372; 99284; J0248; J0692; J1650; J1815; J2270; J2405; J2470; J7030; J7050; Q9967